=== PATIENT | male | born 1940 | race Caucasian/White ===

== ENCOUNTER 2017-12-16 16:06 | Inpatient (IN) | payer MEDICARE, BC, OTHER ==
[2017-12-16] MEDS ORDERED: PIPER-TAZO 3.375 GM IV (PMX) 100 ML IVPB (16:30)
[2017-12-16 17:04] LABS: ADD MAN DIFF? NO
[2017-12-16 17:06] LABS: BASOPHIL # 0.1 10^3/ul (0.0-0.1); BASOPHILS % 0.3 % (0.0-2.0); EOSINOPHILS # 0.1 10^3/ul (0.0-0.5); EOSINOPHILS % 0.3 % (0.0-7.0); HEMATOCRIT 33.2 % (42.0-52.0); HEMOGLOBIN 11.3 g/dl (14.0-18.0); LYMPHOCYTES # 0.7 10^3/ul (0.8-2.9); LYMPHOCYTES % 3.5 % (15.0-51.0); MEAN CORPUSCULAR HEMOGLOBIN 31.2 pg (29.0-33.0); MEAN CORPUSCULAR VOLUME 91.7 fl (82.0-101.0); MEAN PLATELET VOLUME 8.3 fl (7.4-10.4); MONOCYTE # 0.5 10^3/ul (0.3-0.9); MONOCYTES % 2.3 % (0.0-11.0); NEUTROPHIL # 18.8 10^3/ul (1.6-7.5); PLATELET COUNT 334 10^3/UL (140-415); RED BLOOD COUNT 3.62 10^6/ul (4.70-6.10); RED CELL DISTRIBUTION WIDTH 12.6 % (11.5-14.5)
[2017-12-16 17:06] LABS: WHITE BLOOD COUNT 20.2 10^3/ul (4.8-10.8)
[2017-12-16 17:22] LABS: INR 1.28; PROTIME 16.2 Sec (11.9-14.9); PT RATIO 1.3
[2017-12-16] MEDS: IBUPROFEN 600 MG TAB PO (17:24)
[2017-12-16 17:27] LABS: ALANINE AMINOTRANSFERASE 26 IU/L (13-69); ALBUMIN 3.9 g/dl (3.3-4.9); ALBUMIN/GLOBULIN RATIO 1.08; ALKALINE PHOSPHATASE 95 IU/L (42-121); ANION GAP 20 (8-16); ASPARTATE AMINO TRANSFERASE 19 IU/L (15-46); BILIRUBIN,INDIRECT 0.8 mg/dl (0-1.1); BILIRUBIN,TOTAL 0.8 mg/dl (0.2-1.3); BLOOD UREA NITROGEN 24 mg/dl (7-20); CARBON DIOXIDE 29 mmol/L (21-31); CHLORIDE 99 mmol/L (97-110); CREATININE 1.43 mg/dl (0.61-1.24); GLUCOSE 124 mg/dl (70-220); LIPASE 31 U/L (23-300); SODIUM 143 mmol/L (135-144); TOTAL PROTEIN 7.5 g/dl (6.1-8.1)
[2017-12-16 17:38] LABS: TROPONIN-I 0.035 ng/ml (0.00-0.12)
[2017-12-16] MEDS: SODIUM CHLORIDE 0.9% 1L BAG IV* (17:38)
[2017-12-16 17:52] LABS: LACTIC ACID 2.4 mmol/L (0.5-2.0)
[2017-12-16] MEDS ORDERED: ONDANSETRON 4 MG INJ IV (19:00)
[2017-12-16] MEDS ORDERED: VANCOMYCIN IV PER PHARMACY XX (19:00)
[2017-12-16] MEDS ORDERED: NACL 0.9% 3 ML SYG IV (19:00)
[2017-12-16 19:11] LABS: ADD UMIC YES; UR ASCORBIC ACID NEGATIVE (NEGATIVE); UR BACTERIA MANY /HPF (NONE SEEN); UR BILIRUBIN (Dip) NEGATIVE (NEGATIVE); UR BLOOD (Dip) 2+ mg/dL (NEGATIVE); UR CLARITY CLOUDY (CLEAR); UR COLOR YELLOW (YELLOW); UR GLUCOSE (Dip) NEGATIVE (NEGATIVE); UR KETONES (Dip) NEGATIVE (NEGATIVE); UR LEUKOCYTE ESTERASE (Dip) 3+ Leu/ul (NEGATIVE); UR NITRITE (Dip) NEGATIVE (NEGATIVE); UR NONSQUAMOUS EPITHELIAL CELL 1 /HPF (NONE SEEN); UR RBC 3 /HPF (0-5); UR SPECIFIC GRAVITY (Dip) 1.015 (1.003-1.030); UR TOTAL PROTEIN (Dip) NEGATIVE (NEGATIVE); UR UROBILINOGEN (Dip) NEGATIVE (NEGATIVE); UR WBC 37 /HPF (0-5)
[2017-12-16] MEDS: CEFTRIAXONE 1 GM/50 ML (PMX) 50 ML IVPB (19:46)
[2017-12-16 20:10] LABS: LACTIC ACID 1.3 mmol/L (0.5-2.0)
[2017-12-16] MEDS: VANCOMYCIN 1 GM (PMX) 250 ML IVPB (20:10)
[2017-12-16] MEDS ORDERED: CEFEPIME 1GM/50 ML (PMX) 50 ML IVPB (21:00)
[2017-12-16] MEDS: SOD CHLORIDE 0.9% 1,000 ML IV ×2 (23:03→23:26)
[2017-12-17] MEDS: DOCUSATE SODIUM 100 MG CAP PO (08:34)
[2017-12-17] MEDS: ACETAMINOPHEN 325 MG TAB PO (08:34)
[2017-12-17 08:50] LABS: ADD MAN DIFF? NO
[2017-12-17 08:52] LABS: BASOPHIL # 0.1 10^3/ul (0.0-0.1); BASOPHILS % 0.4 % (0.0-2.0); EOSINOPHILS # 0.1 10^3/ul (0.0-0.5); EOSINOPHILS % 0.4 % (0.0-7.0); HEMATOCRIT 31.6 % (42.0-52.0); HEMOGLOBIN 10.1 g/dl (14.0-18.0); LYMPHOCYTES % 4.8 % (15.0-51.0); MEAN CORPUSCULAR HEMOGLOBIN 30.4 pg (29.0-33.0); MEAN CORPUSCULAR VOLUME 95.2 fl (82.0-101.0); MEAN PLATELET VOLUME 8.6 fl (7.4-10.4); MONOCYTE # 1.4 10^3/ul (0.3-0.9); MONOCYTES % 6.8 % (0.0-11.0); NEUTROPHIL # 17.5 10^3/ul (1.6-7.5); PLATELET COUNT 296 10^3/UL (140-415); RED BLOOD COUNT 3.32 10^6/ul (4.70-6.10); RED CELL DISTRIBUTION WIDTH 12.7 % (11.5-14.5)
[2017-12-17 08:52] LABS: WHITE BLOOD COUNT 20.1 10^3/ul (4.8-10.8)
[2017-12-17 09:19] LABS: ALBUMIN 3.3 g/dl (3.3-4.9); ANION GAP 16 (8-16); BLOOD UREA NITROGEN 23 mg/dl (7-20); CALCIUM 8.2 mg/dl (8.4-10.2); CARBON DIOXIDE 28 mmol/L (21-31); CHLORIDE 106 mmol/L (97-110); CREATININE 1.25 mg/dl (0.61-1.24); GLUCOSE 110 mg/dl (70-220); MAGNESIUM 2.2 mg/dl (1.7-2.5); PHOSPHORUS 3.8 mg/dl (2.5-4.9); POTASSIUM 4.6 mmol/L (3.5-5.1); SODIUM 145 mmol/L (135-144)
[2017-12-17] MEDS: VANCOMYCIN 1.5 GM in SOD CHLORIDE 0.9% 250 ML IVPB (10:40)
[2017-12-17] MEDS: HYDROCODONE/APAP (5/325) TAB PO ×2 (11:35→16:35)
[2017-12-17] MEDS: CEFTRIAXONE 1 GM/50 ML (PMX) 50 ML IVPB (20:50)
[2017-12-17] MEDS ORDERED: VANCOMYCIN 1 GM 250 ML IVPB (23:00)
[2017-12-18] MEDS: HYDROCODONE/APAP (5/325) TAB PO ×3 (00:07→21:56)
[2017-12-18] MEDS ORDERED: VANCOMYCIN IV PER PHARMACY XX (02:30)
[2017-12-18] MEDS: VANCOMYCIN 1.5 GM in SOD CHLORIDE 0.9% 250 ML IVPB ×3 (03:00→17:21)
[2017-12-18 06:23] LABS: ADD MAN DIFF? NO
[2017-12-18 06:25] LABS: BASOPHIL # 0.1 10^3/ul (0.0-0.1); BASOPHILS % 0.4 % (0.0-2.0); EOSINOPHILS # 0.2 10^3/ul (0.0-0.5); EOSINOPHILS % 1.1 % (0.0-7.0); HEMATOCRIT 28.1 % (42.0-52.0); HEMOGLOBIN 9.1 g/dl (14.0-18.0); LYMPHOCYTES # 1.4 10^3/ul (0.8-2.9); LYMPHOCYTES % 10.3 % (15.0-51.0); MEAN CORPUSCULAR HEMOGLOBIN 30.6 pg (29.0-33.0); MEAN CORPUSCULAR HGB CONC 32.4 g/dl (32.0-37.0); MEAN CORPUSCULAR VOLUME 94.6 fl (82.0-101.0); MEAN PLATELET VOLUME 8.8 fl (7.4-10.4); MONOCYTE # 1.4 10^3/ul (0.3-0.9); MONOCYTES % 10.1 % (0.0-11.0); NEUTROPHIL # 10.4 10^3/ul (1.6-7.5); NEUTROPHILS % 77.5 % (39.0-77.0); PLATELET COUNT 234 10^3/UL (140-415); RED BLOOD COUNT 2.97 10^6/ul (4.70-6.10); RED CELL DISTRIBUTION WIDTH 12.7 % (11.5-14.5)
[2017-12-18 06:25] LABS: WHITE BLOOD COUNT 13.5 10^3/ul (4.8-10.8)
[2017-12-18 06:47] LABS: ANION GAP 11 (8-16); BLOOD UREA NITROGEN 21 mg/dl (7-20); CALCIUM 8.2 mg/dl (8.4-10.2); CARBON DIOXIDE 31 mmol/L (21-31); CHLORIDE 105 mmol/L (97-110); CREATININE 1.04 mg/dl (0.61-1.24); GLUCOSE 103 mg/dl (70-220); MAGNESIUM 2.2 mg/dl (1.7-2.5); PHOSPHORUS 3.3 mg/dl (2.5-4.9); POTASSIUM 4.4 mmol/L (3.5-5.1); SODIUM 143 mmol/L (135-144)
[2017-12-18] MEDS: DOCUSATE SODIUM 100 MG CAP PO (09:29)
[2017-12-18] MEDS: CEFTRIAXONE 1 GM/50 ML (PMX) 50 ML IVPB (20:38)
[2017-12-19] MEDS: VANCOMYCIN 1.5 GM in SOD CHLORIDE 0.9% 250 ML IVPB ×2 (06:12→18:23)
[2017-12-19] MEDS: ASPIRIN 81 MG TAB PO (08:38)
[2017-12-19 08:44] LABS: ADD MAN DIFF? NO
[2017-12-19] MEDS: DOCUSATE SODIUM 100 MG CAP PO (08:46)
[2017-12-19 08:49] LABS: WHITE BLOOD COUNT 8.7 10^3/ul (4.8-10.8)
[2017-12-19 08:49] LABS: BASOPHIL # 0.1 10^3/ul (0.0-0.1); BASOPHILS % 0.7 % (0.0-2.0); EOSINOPHILS # 0.1 10^3/ul (0.0-0.5); EOSINOPHILS % 1.3 % (0.0-7.0); HEMATOCRIT 30.5 % (42.0-52.0); LYMPHOCYTES # 0.9 10^3/ul (0.8-2.9); LYMPHOCYTES % 10.5 % (15.0-51.0); MEAN CORPUSCULAR HEMOGLOBIN 30.5 pg (29.0-33.0); MEAN CORPUSCULAR HGB CONC 32.8 g/dl (32.0-37.0); MONOCYTE # 0.9 10^3/ul (0.3-0.9); NEUTROPHIL # 6.7 10^3/ul (1.6-7.5); PLATELET COUNT 256 10^3/UL (140-415); RED BLOOD COUNT 3.28 10^6/ul (4.70-6.10); RED CELL DISTRIBUTION WIDTH 12.3 % (11.5-14.5)
[2017-12-19 09:28] LABS: ALBUMIN 3.1 g/dl (3.3-4.9); ANION GAP 10 (8-16); BLOOD UREA NITROGEN 15 mg/dl (7-20); CALCIUM 8.6 mg/dl (8.4-10.2); CARBON DIOXIDE 34 mmol/L (21-31); CHLORIDE 106 mmol/L (97-110); CREATININE 0.92 mg/dl (0.61-1.24); GLUCOSE 133 mg/dl (70-220); MAGNESIUM 2.2 mg/dl (1.7-2.5); PHOSPHORUS 3.5 mg/dl (2.5-4.9); POTASSIUM 4.6 mmol/L (3.5-5.1); SODIUM 145 mmol/L (135-144)
[2017-12-19] MEDS: FUROSEMIDE 20 MG TAB PO (10:25)
[2017-12-19 18:09] LABS: VANCOMYCIN,TROUGH 10.5 ug/ml (10.0-20.0)
[2017-12-19] MEDS: ACETAMINOPHEN 325 MG TAB PO (18:28)
[2017-12-19] MEDS: CEFTRIAXONE 1 GM/50 ML (PMX) 50 ML IVPB (21:30)
[2017-12-20] MEDS: DOCUSATE SODIUM 100 MG CAP PO (06:47)
[2017-12-20] MEDS: FUROSEMIDE 20 MG TAB PO (06:48)
[2017-12-20] MEDS: VANCOMYCIN 1.5 GM in SOD CHLORIDE 0.9% 250 ML IVPB ×2 (06:49→17:27)
[2017-12-20] MEDS: ASPIRIN 81 MG TAB PO (09:01)
[2017-12-20] MEDS: LACTOBACILLUS RHAMNOSUS CAP PO (16:43)
[2017-12-20] MEDS: ENOXAPARIN 30 MG/0.3 ML SYG SC (17:07)
[2017-12-20] MEDS: CEFTRIAXONE 1 GM/50 ML (PMX) 50 ML IVPB (20:06)
[2017-12-20] MEDS: ACETAMINOPHEN 325 MG TAB PO (20:16)
[2017-12-21] MEDS: FUROSEMIDE 20 MG TAB PO (06:13)
[2017-12-21] MEDS: VANCOMYCIN 1.5 GM in SOD CHLORIDE 0.9% 250 ML IVPB (06:40)
[2017-12-21 06:56] LABS: ADD MAN DIFF? NO
[2017-12-21 07:04] LABS: WHITE BLOOD COUNT 7.8 10^3/ul (4.8-10.8)
[2017-12-21 07:04] LABS: BASOPHIL # 0.1 10^3/ul (0.0-0.1); BASOPHILS % 0.8 % (0.0-2.0); EOSINOPHILS # 0.3 10^3/ul (0.0-0.5); EOSINOPHILS % 3.2 % (0.0-7.0); HEMATOCRIT 31.9 % (42.0-52.0); HEMOGLOBIN 10.5 g/dl (14.0-18.0); LYMPHOCYTES # 1.6 10^3/ul (0.8-2.9); LYMPHOCYTES % 19.9 % (15.0-51.0); MEAN CORPUSCULAR HEMOGLOBIN 30.5 pg (29.0-33.0); MEAN CORPUSCULAR HGB CONC 32.9 g/dl (32.0-37.0); MEAN CORPUSCULAR VOLUME 92.7 fl (82.0-101.0); MONOCYTE # 0.8 10^3/ul (0.3-0.9); MONOCYTES % 10.2 % (0.0-11.0); NEUTROPHIL # 5.1 10^3/ul (1.6-7.5); NEUTROPHILS % 65.4 % (39.0-77.0); PLATELET COUNT 285 10^3/UL (140-415); RED BLOOD COUNT 3.44 10^6/ul (4.70-6.10); RED CELL DISTRIBUTION WIDTH 12.2 % (11.5-14.5)
[2017-12-21 07:25] LABS: INR 1.18; PROTIME 15.2 Sec (11.9-14.9); PT RATIO 1.2
[2017-12-21 08:03] LABS: ANION GAP 11 (8-16)
[2017-12-21 08:04] LABS: ALANINE AMINOTRANSFERASE 34 IU/L (13-69); ALKALINE PHOSPHATASE 78 IU/L (42-121); ASPARTATE AMINO TRANSFERASE 26 IU/L (15-46); BLOOD UREA NITROGEN 14 mg/dl (7-20); CARBON DIOXIDE 36 mmol/L (21-31); CHLORIDE 105 mmol/L (97-110); CREATININE 0.97 mg/dl (0.61-1.24); GLUCOSE 117 mg/dl (70-220); MAGNESIUM 2.2 mg/dl (1.7-2.5); PHOSPHORUS 4.2 mg/dl (2.5-4.9); POTASSIUM 4.2 mmol/L (3.5-5.1); SODIUM 148 mmol/L (135-144)
[2017-12-21 08:05] LABS: ALBUMIN 3.2 g/dl (3.3-4.9); BILIRUBIN,INDIRECT 0.1 mg/dl (0-1.1); BILIRUBIN,TOTAL 0.1 mg/dl (0.2-1.3); TOTAL PROTEIN 6.4 g/dl (6.1-8.1)
[2017-12-21 08:28] LABS: THYROID STIMULATING HORMONE 0.636 MIU/L (0.465-4.680)
[2017-12-21] MEDS: ASPIRIN 81 MG TAB PO (09:36)
[2017-12-21] MEDS: LACTOBACILLUS RHAMNOSUS CAP PO (09:36)
[2017-12-21] MEDS: DOCUSATE SODIUM 100 MG CAP PO (09:36)
[2017-12-21] MEDS: ENOXAPARIN 30 MG/0.3 ML SYG SC (09:38)
[2017-12-21] MEDS ORDERED: DOXYCYCLINE 100 MG TAB PO (21:00)
[2017-12-22] MEDS ORDERED: LEVOFLOXACIN 500 MG TAB PO (06:00)
== END 2017-12-21 15:30 | disposition home or self-care (01) | DRG 872 ==
LOC: E/R 16:06 → MS4 18:36
DX: A41.9 Sepsis, unspecified organism (principal); N39.0 Urinary tract infection, site not specified; N17.9 Acute kidney failure, unspecified; Z98.890 Other specified postprocedural states; N31.9 Neuromuscular dysfunction of bladder, unspecified; E66.01 Morbid (severe) obesity due to excess calories; D64.9 Anemia, unspecified; I25.10 Atherosclerotic heart disease of native coronary artery without angina pectoris; R65.20 Severe sepsis without septic shock; B96.1 Klebsiella pneumoniae [K. pneumoniae] as the cause of diseases classified elsewhere; F10.21 Alcohol dependence, in remission; Z68.36 Body mass index [BMI] 36.0-36.9, adult; Z95.2 Presence of prosthetic heart valve; Z95.0 Presence of cardiac pacemaker; Z87.891 Personal history of nicotine dependence; Z79.82 Long term (current) use of aspirin
CPT/HCPCS: 71045; 80053; 80069; 80202; 81001; 83605; 83690; 83735; 84100; 84443; 84484; 85025; 85610; 85730; 87040; 87086; 93005; 93306; 94660; 96374; 96375; 99291-25